=== PATIENT | male | born 2000 | race African-American/Black ===

== ENCOUNTER 2022-10-24 11:29 | Emergency (ER) | payer OTHER, SELFPAY ==
--- NOTE | ~2022-10-24 | XR_ITS ---
EXAMINATION: XR hand LT min 3V DATE: 10/24/2022 12:33 INDICATION: Left hand injury. TECHNIQUE: 3 views of left hand were obtained. COMPARISON: None. FINDINGS: The wrist is in nonstandard positioning, which decreases sensitivity in the distal radius. Bone alignment is normal. No fracture. Joint spaces are normal. IMPRESSION: 1. No fracture. Reviewed, dictated and finalized at location A. IMPRESSION: 1. No fracture.
[2022-10-24 11:32] VITALS: BP 122/89; PULSE 58; RESP 18; TEMP 36.3; O2SAT 100
[2022-10-24 12:32] LABS: Basophils Percent Auto 0.4 % (0.2-1.2); Eosinophils Percent Auto 0.2 % (0-4.4); Hematocrit 44.7 % (42.0-52.0); Hemoglobin 14.7 g/dL (14.0-18.0); Immature Granulocyte Absolute 0.01 K/mm3 (0.00-0.031); Immature Granulocyte Percent A 0.2 % (0-0.5); Lymphocytes Absolute Auto 1.33 K/mm3 (0.9-3.2); Lymphocytes Percent Auto 28.4 % (18.3-44.2); Mean Corpuscular HGB Conc 32.9 g/dl (32-36); Mean Corpuscular Hemoglobin 32.8 pg (26-34); Mean Corpuscular Volume 99.8 fl (80-100); Mean Platelet Volume 8.7 fl (7.4-10.4); Monocytes Absolute Auto 0.3 K/mm3 (0.1-0.6); Monocytes Percent Auto 6.8 % (2.6-8.5); Platelet Count Result 240 k/mm3 (150-375); Red Blood Count 4.48 M/mm3 (4.6-6.20); Red Cell Distribution Width 11.4 % (11.5-14.5); White Blood Count 4.7 K/mm3 (4.5-10.0)
[2022-10-24 12:33] LABS: Appearance Urine Clear (Clear); Bilirubin Urine Negative (Negative); Blood Urine Negative (Negative); Color Urine Yellow (Yellow); Glucose Urine UA Negative (Negative); Ketones Urine Negative (Negative); Leukocyte Esterase Ur Negative LEU/UL (Negative); Nitrate Urine Negative (Negative); Protein Urine Negative (Negative); Specific Grav Ur 1.023 (1.001-1.035)
[2022-10-24 12:44] LABS: Add Urine Microscopic? NO
[2022-10-24 12:45] LABS: Alanine Aminotransferase 22 U/L (6-50); Albumin Level 4.7 g/dL (3.5-5.1); Alkaline Phosphatase 56 U/L (38-126); Anion Gap 9 mmol/L (8-16); Aspartate Amino Transferase 26 U/L (17-59); Bilirubin,Total 1.5 mg/dL (0.2-1.3); Blood Urea Nitrogen 20 mg/dL (9-20); Calcium 9.5 mg/dL (8.4-10.2); Carbon Dioxide 31 mmol/L (22-30); Chloride 102 mmol/L (98-107); Estimated CRCL calculation 101 ml/min; Estimated Glomerular Filt Rate > 60; Glucose 99 mg/dL (65-110); Sodium 142 mmol/L (137-145)
[2022-10-24 12:46] LABS: Ethanol < 10 mg/dL (<10)
[2022-10-24 12:55] LABS: Amphetamine Screen Urine Negative (Negative); Barbiturate Screen Urine Negative (Negative); Benzodiazepines Screen Urine Negative (Negative); Cannabinoid Screen Urine Positive (Negative); Cocaine Screen Urine Negative (Negative); Methadone Screen Urine Negative (Negative); Opiate Screen Urine Negative (Negative); Phencyclidine Screen Urine Negative (Negative)
--- NOTE | 2022-10-24 12:58 | ED.PSYCH ---
HPI - Psych General Chief Complaint: Psychiatric Symptoms Stated Complaint: suicidal thoughts/left hand injury Time Seen by Provider: 10/24/22 11:59 History of Present Illness HPI Narrative: Patient is a 22-year-old male who presents ER with depression and suicidal ideation. He underwent a break-up with his significant other 5 days ago. Since then he has had emotional distress. He has been striking inanimate objects. He has been contemplating suicide. He is thought about drowning himself in a andrade or slitting his wrist. He reports he intentionally cut his wrists 2 months ago due to distress in his relationship. He also tried taking Midol and Excedrin to overdose at the same time. He is attempted no overdose at this time. He has no previous diagnosis of depression. No previous hospitalizations for psychiatric illness. Patient reports pain to the left hand over the third MCP due to striking a sign. He maintains full range of motion and has no numbness or tingling. Related Data Allergies Allergy/AdvReac Type Severity Reaction Status Date / Time No Known Drug Allergies Allergy Unknown Unknown Verified 10/24/22 11:30 Review of Systems Review of Systems: All systems reviewed & are unremarkable except as noted in HPI and below Constitutional: Constitutional: Denies chills, Denies fatigue and Denies fever(s) ENT: Denies nasal congestion and Denies sore throat Cardiovascular: Cardiovascular: Denies chest pain, Denies rapid heart rate and Denies radiating jaw, neck or arm pain Respiratory: Respiratory: Denies cough and Denies dyspnea Gastrointestinal: Gastrointestinal: Denies abdominal pain, Denies nausea and Denies vomiting Psychiatric: Psychiatric: Denies anxiety, Reports depression, Denies homicidal ideation and Reports suicidal ideation PMFSH Past Medical History Medical History (Updated 10/24/22 @ 16:35 by Vicente Morrissey MD) Healthy adult male Surgical History Surgical History (Updated 10/24/22 @ 12:59 by Vicente Morrissey MD) No history of previous surgery Social History Social History (Updated 10/24/22 @ 13:00 by Vicente Morrissey MD) Substance use type: marijuana Exam Narrative: GENERAL: Well-appearing, well-nourished, and in no acute distress. HEAD: Normocephalic, atraumatic. EYES: PERRL and EOMI. ENT: Mucous membranes moist. CHEST: Clear to auscultation. No respiratory distress. HEART: Regular rate and rhythm. No murmur heard. Normal peripheral pulses. EXTREMITIES: Normal range of motion. No edema. Swelling at the left third MCP with normal range of motion and normal sensation/vascular flow. SKIN: Warm, dry, no rash. NEURO: Alert and oriented x3. PSYCH: Normal mood and affect reports depression and suicidality. Course Course Emergency Course: Crisis has been out to evaluate the patient. Patient has been medically cleared for psychiatric care. They have safety plan the patient and are also planning on doing an intake on the patient over at [facility]. Patient and mother feel comfortable with the treatment plan patient be discharged at this time. Patient has no access to firearms use and has no active plan. Vital Signs Vital signs: Vital Signs Temperature 97.4 F L 10/24/22 11:32 Pulse Rate 58 L 10/24/22 11:32 Respiratory Rate 18 10/24/22 11:32 Blood Pressure 122/89 10/24/22 11:32 Pulse Oximetry 100 10/24/22 11:32 Oxygen Delivery Room Air 10/24/22 11:32 Temperature 98.3 F 10/24/22 16:50 Pulse Rate 70 10/24/22 16:50 Respiratory Rate 16 10/24/22 16:50 Blood Pressure 118/70 10/24/22 16:50 Pulse Oximetry 98 10/24/22 16:50 Oxygen Delivery Room Air 10/24/22 11:32 MDM - Psych Lab Data 10/24/22 12:25 10/24/22 12:25 Labs: Lab Results 10/24/22 10/24/22 Range/Units 12:13 12:25 WBC 4.7 (4.5-10.0) K/mm3 RBC 4.48 L (4.6-6.20) M/mm3 Hgb 14.7 (14.0-18.0) g/dL Hct 44.7 (42.0-52.0) % [facility]
[2022-10-24 13:14] LABS: Thyroid Stimulating Hormone 0.561 uIU/mL (0.465-4.680)
[2022-10-24 16:50] VITALS: BP 118/70; PULSE 70; RESP 16; TEMP 36.8; O2SAT 98
== END 2022-10-24 16:50 | disposition home or self-care (01) ==
PROVIDERS: Emergency Provider Emergency Medicine
DX: F32.A Depression, unspecified (principal); S60.222A Contusion of left hand, initial encounter; W22.8XXA Striking against or struck by other objects, initial encounter
CPT/HCPCS: 36415; 73130; 80053; 80307; 81003; 84443; 85025; 99284